=== PATIENT | female | born 1945 | race Caucasian/White ===

== ENCOUNTER 2017-01-29 18:58 | Inpatient (IN) | payer MEDICARE, OTHER ==
[~2017-01-29] VITALS: Ht 152.4 cm; Wt 88.7 kg
[2017-01-29] MEDS ORDERED: FURO20TA4 PO (19:09)
[2017-01-29] MEDS ORDERED: BACL10TA PO (19:09)
[2017-01-29] MEDS ORDERED: AMLO5TAB66 PO (19:09)
[2017-01-29] MEDS ORDERED: CEPH500C2 PO (19:09)
[2017-01-29 19:34] LABS: APPEARANCE,URINE CLOUDY (CLEAR); GLUCOSE, URINE (UA) NEGATIVE (NEGATIVE); KETONES,URINE NEGATIVE (NEGATIVE); LEUKOCYTE ESTERASE ,URINE LARGE (NEGATIVE); OCCULT BLOOD,URINE SMALL (NEGATIVE); PROTEIN,URINE NEGATIVE (NEGATIVE)
[2017-01-29 19:45] LABS: BASOPHILS # (AUTO) 0.01 K/uL (0.00-0.20); BASOPHILS % (AUTO) 0.2 % (0.0-2.0); EOSINOPHILS # (AUTO) 0.13 K/uL (0.00-0.70); EOSINOPHILS % (AUTO) 1.29 % (1.0-6.0); HEMATOCRIT 43.6 % (36-46); HEMOGLOBIN 14.5 g/dL (12.0-16.0); LYMPHOCYTES # (AUTO) 1.9 K/uL (1.0-4.8); MEAN CORPUSCULAR HEMOGLOBIN 29.9 pg (26.0-34.0); MEAN CORPUSCULAR HGB CONC 33.3 G/dL (31.0-37.0); MEAN CORPUSCULAR VOLUME 90 fL (80-100); MONOCYTES # (AUTO) 0.6 K/uL (0.1-1.0); MONOCYTES % (AUTO) 5.8 % (2.0-9.0); NEUTROPHILS # (AUTO) 7.2 K/uL (1.8-7.7); NEUTROPHILS % (AUTO) 73.8 % (40.0-70.0); PLATELET COUNT (AUTO) 178 K/uL (150-450); RED BLOOD CELL COUNT(AUTO) 4.85 MIL/uL (4.00-5.20); RED CELL DISTRIBUTION WIDTH 13.7 % (11.5-14.5); WHITE BLOOD COUNT (AUTO) 9.8 K/uL (4.5-11.0)
[2017-01-29 19:47] LABS: ADD UA MICROSCOPIC YES
[2017-01-29 19:48] LABS: SQUAMOUS EPITHELIAL CELL,UR Few /LPF (None Seen)
[2017-01-29 19:49] LABS: WBC,URINE 51-100 /HPF (0-5)
[2017-01-29 19:59] LABS: ANION GAP 7 mmol/L (8-16); CALCIUM, TOTAL 9.4 mg/dL (8.8-10.5); CARBON DIOXIDE 33 mmol/L (22-29); CHLORIDE 103 mmol/L (98-107); CREATININE 0.74 mg/dL (0.60-1.30); GLOMERULAR FILTR. RATE CALC > 60 mL/min (>60); SODIUM SERUM 143 mmol/L (136-145); UREA NITROGEN, BLOOD 18 mg/dL (7-18)
[2017-01-29 20:01] LABS: POTASSIUM 2.6 mmol/L (3.5-5.1)
[2017-01-29] MEDS ORDERED: PHENAZOPYRIDINE HCL 100 MG TABLET PO ONE (20:15)
[2017-01-29] MEDS ORDERED: POTASSIUM CHLORIDE 20 MEQ ER TABLET PO ONE (20:15)
[2017-01-29] MEDS ORDERED: LEVOFLOXACIN 500 MG/D5% WATER 100 ML IV ONE (20:15)
[2017-01-29 22:05] VITALS: BP 134/62
[2017-01-29] MEDS ORDERED: SODIUM CHLORIDE 0.9% 100 ML ONE (22:25)
[2017-01-29] MEDS: POTASSIUM CHL 10 MEQ/WATER 50 ML IV SCH (22:40)
[2017-01-29 23:30] VITALS: BP 125/59
[2017-01-30] MEDS: POTASSIUM CHL 10 MEQ/WATER 50 ML IV SCH (00:13)
[2017-01-30 04:10] VITALS: BP 120/56
[2017-01-30 07:00] VITALS: BP 128/62
[2017-01-30] MEDS ORDERED: POTASSIUM CHL 10 MEQ/WATER 50 ML IV PRN (07:45)
[2017-01-30] MEDS ORDERED: AmLODIPine BESYLATE 5 MG TABLET PO SCH (09:00)
[2017-01-30] MEDS ORDERED: CEPHALEXIN MONOHYDRATE 500 MG CAPSULE PO SCH (09:00)
[2017-01-30] MEDS ORDERED: BACLOFEN 10 MG TABLET PO SCH (09:00)
[2017-01-30] MEDS: FUROSEMIDE 20 MG TABLET PO SCH (09:33)
[2017-01-30] MEDS: ATENOLOL 50 MG TABLET PO SCH ×3 (11:46→21:22)
[2017-01-30 14:35] VITALS: BP 118/59
[2017-01-30 19:33] VITALS: BP 140/64
[2017-01-30 22:46] VITALS: BP 124/61
[2017-01-30] MEDS: FELODIPINE 5 MG ER TABLET PO SCH (22:47)
[2017-01-30] MEDS: LEVOFLOXACIN 500 MG/D5% WATER 100 ML IV SCH (22:53)
[2017-01-30] MEDS ORDERED: SODIUM CHLORIDE 0.9% 100 ML ONE (23:28)
[2017-01-31] VITALS (7 sets, daily range): BP systolic 109–139; BP diastolic 55–77
[2017-01-31] MEDS ORDERED: FELO5ER PO (02:50)
[2017-01-31] MEDS: FUROSEMIDE 20 MG TABLET PO SCH (09:00)
[2017-01-31] MEDS: ATENOLOL 50 MG TABLET PO SCH ×3 (09:00→21:00)
[2017-01-31] MEDS: LACTOBACILLUS ACIDOPHILUS/BULGARICUS GRANULES PACKET PO SCH (20:35)
[2017-01-31] MEDS: FELODIPINE 5 MG ER TABLET PO SCH (20:35)
[2017-01-31] MEDS ORDERED: LATANOPROST 0.005% 2.5 ML OPHTHALMIC SOLUTION OU SCH (21:00)
[2017-01-31] MEDS: OMEPRAZOLE 20 MG CAPSULE PO SCH (21:21)
[2017-01-31] MEDS ORDERED: SODIUM CHLORIDE 0.9% 100 ML ONE (22:53)
[2017-01-31] MEDS: LEVOFLOXACIN 500 MG/D5% WATER 100 ML IV SCH (23:02)
[2017-01-31] MEDS: ACETAMINOPHEN 650 MG/20.3 ML SOLUTION UDCUP PO PRN (23:18)
[2017-02-01 06:04] VITALS: BP 137/70
[2017-02-01 07:54] VITALS: BP 116/63
[2017-02-01] MEDS ORDERED: OMEPRAZOLE 20 MG CAPSULE PO SCH (09:00)
[2017-02-01 09:17] VITALS: BP 112/72
[2017-02-01] MEDS: LACTOBACILLUS ACIDOPHILUS/BULGARICUS GRANULES PACKET PO SCH (09:23)
[2017-02-01] MEDS: FUROSEMIDE 20 MG TABLET PO SCH (09:23)
[2017-02-01] MEDS: ATENOLOL 50 MG TABLET PO SCH (09:24)
[2017-02-01] MEDS: OMEPRAZOLE 20 MG CAPSULE PO SCH (09:24)
[2017-02-01] MEDS: ACETAMINOPHEN 650 MG/20.3 ML SOLUTION UDCUP PO PRN (11:14)
[2017-02-01 11:35] VITALS: BP 128/61
[2017-02-01] MEDS ORDERED: LEVO500 PO (12:00)
== END 2017-02-01 14:40 | disposition home or self-care (01) | DRG 690 ==
LOC: EMS 19:01 → 5N 20:22
PROVIDERS: ADMIT Internal Medicine; ATTEND Internal Medicine
DX: N39.0 Urinary tract infection, site not specified (principal); I11.9 Hypertensive heart disease without heart failure; E87.6 Hypokalemia; B96.20 Unspecified Escherichia coli [E. coli] as the cause of diseases classified elsewhere; M81.0 Age-related osteoporosis without current pathological fracture; E78.5 Hyperlipidemia, unspecified; R73.9 Hyperglycemia, unspecified; H40.9 Unspecified glaucoma; Z96.649 Presence of unspecified artificial hip joint; E78.3 Hyperchylomicronemia; M17.0 Bilateral primary osteoarthritis of knee; Z87.440 Personal history of urinary (tract) infections; Z79.899 Other long term (current) drug therapy
CPT/HCPCS: 76770; 84132; 87086; 96365; 99285; J1956; J3480; J7050